=== PATIENT | female | born 1995 | race African-American/Black ===

== ENCOUNTER 2025-05-01 09:03 | Emergency (ER) | payer OTHER, SELFPAY ==
--- NOTE | 2025-05-01 09:11 | ED.URI ---
HPI - URI/Sore Throat General Chief Complaint: Upper Respiratory Infection Stated Complaint: Ears Irritation/Sore Throat Time Seen by Provider: 05/01/25 09:22 Source: patient, RN notes reviewed and old records reviewed Mode of arrival: ambulatory Limitations: no limitations History of Present Illness HPI Narrative: 30 year old female presents to [facility] care with complaints of having cough, sinus congestion with drainage,body aches, chills, sore throat and some ear irritation, and some nausea for over a week duration. Patient reports that she took COVID and Flu test last Saturday which was negative. Patient reports that she has not had a fever. She states that she has been taking OTC medications without relief. Patient reports that her cough has become worse in the past few days. MD elicited complaint: sore throat Onset (ago): day(s) (10 days) Severity: moderate Description of mucous: clear Able to tolerate fluids by mouth: Yes Treatments prior to arrival: acetaminophen, ibuprofen and cold medicine Related Data Allergies Allergy/AdvReac Type Severity Reaction Status Date / Time No Known Drug Allergies Allergy none Verified 05/01/25 09:42 Review of Systems Review of Systems: CONSTITUTIONAL: Reports malaise, chills, sweats, no known fever. EYES: Denies visual changes, redness, or discharge. ENT: Reports rhinorrhea, congestion, sinus pain, otalgia and sore throat. CARDIOVASCULAR: Denies chest pain, palpitations, or edema. RESPIRATORY: Reports cough.? Denies dyspnea. GASTROINTESTINAL: Denies abdominal pain, nausea, vomiting, diarrhea SKIN: Denies rash or itching. MUSCULOSKELETAL: Reports myalgia. NEUROLOGIC: Denies headache. All systems reviewed & are unremarkable except as noted in HPI and below PMFSH Past Medical History Medical History (Updated 05/02/25 @ 08:10 by Marisel Ordoñez APRN) Anxiety Gestational diabetes Surgical History Surgical History (Updated 05/02/25 @ 08:10 by Marisel Ordoñez APRN) Previous section Social History Social History (Updated 05/02/25 @ 08:10 by Marisel Ordoñez APRN) Smoking status: Never smoker Alcohol intake: current Alcohol use details: social Substance use type: does not use Living arrangements: with family Gender identity (if verbalized by the patient): Female Comments At time of signature, agree with nursing past medical, surgical, social and family history. There is no relevant family history pertinent to the presenting complaint Exam Narrative: GENERAL: ill-appearing, well-nourished, obese,and in no acute distress. HEAD: Normocephalic EYES: PERRLA, conjunctivae clear ENT: Nares clear, turbinates edematous and erythematous, clear discharge. Mucous membranes moist. TM pearly quiroz with dull light reflex bilaterally; no tragal tenderness. Oropharynx erythematous without lesions. Tonsils red enlarged and without exudate, no drooling, no hoarseness, no trismus, uvula midline, post nasal drainage NECK: Supple. positive for neck lymphadenopathy CHEST: Clear to auscultation, breath sounds equal. No wheezing, rhonchi, rales, or stridor. No respiratory distress, speaks in full sentences.cough noted SAO2 100% on room air HEART: Regular rate and rhythm. No murmur heard. SKIN: Warm, dry, no rash. NEURO: Alert and oriented x3. PSYCH: Normal mood and affect Course Course Emergency Course: Patient is aware of diagnosis, understands and agrees to treatment plan.? Anticipatory guidance given.? Patient agrees to follow-up as directed and is aware of reasons to seek care at the emergency department. Portions of this record may have been created with voice recognition software Level of Care: Express Care Visit Vital Signs Vital signs: Vital Signs Temperature 36.4 C L 05/01/25 09:22 Pulse Rate 88 05/01/25 09:22 Respiratory Rate 18 05/01/25 09:22 Blood Pressure 134/104 H 05/01/25 09:22 Pulse Oximetry 100 05/01/25 09:22 Oxygen Delivery Room Air 05/01/25 09:22 Temperature 36.4 C L 05/01/25 09:22 Pulse Rate 88 05/01/25 09:22 Respiratory Rate 18 05/01/25 09:22 Blood Pressure 134/104 H 05/01/25 09:22 Pulse Oximetry 100 05/01/25 09:22 Oxygen Delivery Room Air 05/01/25 09:22 Reviewed MDM - URI/Sore Throat MDM Narrative Medical decision making narrative: Differential diagnosis considered: Horan virus, strep pharyngitis, allergic rhinitis, upper respiratory tract infection, sinusitis, rhinosinusitis, nasopharyngitis. viral pharyngitis, otitis media, otitis externa, pneumonia, bronchitis, viral cough syndrome, viral syndrome, and influenza.? Exam findings show no acute concerns or changes; patient is non-toxic appearing and is in no distress.? Patient is appropriate for outpatient treatment and follow-up. Differential Diagnosis Differential diagnosis: Likely upper respiratory infection, influenza, pharyngitis and other (strep pharyngitis, cough, COVID) Medical Records Attestation: I reviewed the patient's medical records. Lab Data Attestation: I reviewed the patient's lab results. Lab results narrative: strep screen positive, Influenza A&B negative, COVID antigen negative Labs: Lab Results 05/01/25 05/01/25 Range/Units 09:41 09:48 POC Influenza A Ag Negative (Negative) POC Influenza B Ag Negative (Negative) POC SARS CoV-2 Ag Negative (Negative) POC Grp A Strep Screen Positive (Negative) reviewed Critical Care Time Critical Care Time Critical Care Time: No Discharge Plan Discharge Clinical Impression: Acute streptococcal pharyngitis, Acute cough Patient Disposition: Home Condition: Stable Instructions: Antibiotic Form, Strep Throat (ED) Additional Instructions: You tested positive for Group A strep . Take the entire course of antibiotics. Throw away your current toothbrush and begin using a new toothbrush in 48 hours in order to prevent re-infection. Sanitize all reusable water bottles . Do not share items with others. Salt water gargles may alleviate some of the throat discomfort. You can take Tylenol or ibuprofen per the package instructions for pain/fever. Zyrtec Claritin or Shima daily may use Coricidin brand decongestant If your symptoms persist, change or worsen significantly before you can contact your personal physician then please, without delay, go to the emergency department for further evaluation. Follow-up with PCP in 7-10 days or sooner if needed Follow up with PCP soon in regards to your blood pressure which is elevated above threshold for referral. Blood pressure above 120/80 may indicate pre-hypertension.134/104 Medrol dose pack for acute cough take as prescribed Patient Language: Taiwanese Prescriptions: New methylprednisolone [Medrol (Chandana)] 4 mg tablets,dose pack See Rx Instructions .ROUTE .COMPLEX Qty: 21 0RF Rx Instructions: orally per package directions amoxicillin 500 mg capsule 500 mg PO Q8H Qty: 30 0RF Rx Instructions: take all doses of antibiotic Follow-up/Referrals: Fanny,Ayala Esparza DO [Primary Care Provider, Unknown] Time of Disposition: 10:05 Quality [place] Coma Scale Eyes: Open Verbal: Oriented and Alert Motor: Follows Commands [place] Coma Total Score: 15
[2025-05-01 09:22] VITALS: BP 134/104; PULSE 88; RESP 18; TEMP 36.4; O2SAT 100
[2025-05-01 09:44] LABS: EDSTREPNEGPOS1 Positive (Negative)
[2025-05-01 09:50] LABS: EDCOVIDSCREEN Negative (Negative); EDINFLUASCREEN Negative (Negative); EDINFLUBSCREEN Negative (Negative)
== END 2025-05-01 10:16 | disposition home or self-care (01) ==
PROVIDERS: Emergency Provider Registered Nurse; PCP Internal Medicine
DX: J02.0 Streptococcal pharyngitis (principal); R05.1 Acute cough; Z20.822 Contact with and (suspected) exposure to COVID-19
CPT/HCPCS: 87426; 87804; 87880; 99203; G0463